=== PATIENT | male | born 1955 | race Caucasian/White ===

== ENCOUNTER 2017-03-01 14:33 | Emergency (ER) | payer OTHER ==
--- NOTE | 2017-03-01 15:43 | EDM.PDOC ---
ED HPI GENERAL MEDICAL PROBLEM - General Chief Complaint: Back Pain or Injury Stated Complaint: UPPER BACK PAIN Time Seen by Provider: 03/01/17 14:37 Source of Information: Reports: Patient History Limitations: Reports: No Limitations - History of Present Illness INITIAL COMMENTS - FREE TEXT/NARRATIVE: History of present illness: []Patient had a muscle spasm his right upper back a few weeks ago this morning he noted it on the left side of his back. It hurts when he twists and moves and when he takes a deep breath. He denies any fevers, chills, cough or chest pain. Review of systems: As per history of present illness and below otherwise all systems reviewed and negative. Past medical history: As per history of present illness and as reviewed below otherwise noncontributory. Surgical history: As per history of present illness and as reviewed below otherwise noncontributory. Social history: No reported history of drug or alcohol abuse. Family history: As per history of present illness and as reviewed below otherwise noncontributory. Physical exam: General: Well developed, well nourished in NAD HEENT: Atraumatic, normocephalic, pupils reactive, negative for conjunctival pallor or scleral icterus, mucous membranes moist, throat clear, neck supple, nontender, trachea midline. Lungs: Clear to auscultation, breath sounds equal bilaterally, chest nontender. Posterior upper chest over the left trapezius muscle area is tender to palpation that is reproducible with the exact same pain he is feeling. Heart: S1S2, regular, negative for clicks, rubs, or JVD. Abdomen: Soft, nondistended, nontender. Negative for masses or hepatosplenomegaly. Negative for costovertebral tenderness. Pelvis: Stable nontender. Genitourinary: Deferred. Rectal: Deferred. Extremities: Atraumatic, negative for cords or calf pain. Neurovascular unremarkable. Neuro: Awake, alert, oriented. Cranial nerves II through XII unremarkable. Cerebellum unremarkable. Motor and sensory unremarkable throughout. Exam nonfocal. Diagnostics: [] Therapeutics: [] Impression: []Musculoskeletal pain back spasm Plan: []Flexeril for spasm, ice, heat, ibuprofen for pain. Definitive disposition and diagnosis as appropriate pending reevaluation and review of above. Left Back/Shoulder Pain Score (Numeric/FACES): 8 - Related Data Allergies Allergy/AdvReac Type Severity Reaction Status Date / Time No Known Allergies Allergy Verified 03/01/17 15:10 Home Meds: Home Meds Antidepressant 0 mg PO DAILY 03/01/17 [History] Cholesterol Medication 0 mg PO DAILY 03/01/17 [History] Esomeprazole Magnesium [Nexium 24Hr] 20 mg PO 03/01/17 [History] Past Medical History Cardiovascular History: Reports: High Cholesterol Gastrointestinal History: Reports: GERD Social & Family History - Family History Family Medical History: Noncontributory - Tobacco Use Smoking Status *Q: Never Smoker - Recreational Drug Use Recreational Drug Use: No ED ROS GENERAL - Review of Systems Review Of Systems: See Below (See history of present illness) ED EXAM, GENERAL - Physical Exam Exam: See Below (See history of present illness) Course - Vital Signs Last Recorded V/S: Last Vital Signs Temp 97.8 F 03/01/17 15:11 Pulse 72 03/01/17 15:11 Resp 18 03/01/17 15:11 BP 143/83 H 03/01/17 15:11 Pulse Ox 94 L 03/01/17 15:11 Departure - Departure Time of Disposition: 15:42 Disposition: Home, Self-Care 01 Condition: Good Clinical Impression: Spasm of muscle, back - Discharge Information Referrals: PCP,None [Primary Care Provider] - Additional Instructions: The following information is given to patients seen in the emergency department who are being discharged to home. This information is to outline your options for follow-up care. We provide all patients seen in our emergency department with a follow-up referral. The need for follow-up, as well as the timing and circumstances, are variable depending upon the specifics of your emergency department visit. If you don't have a primary care physician on staff, we will provide you with a referral. We always advise you to contact your personal physician following an emergency department visit to inform them of the circumstance of the visit and for follow-up with them and/or the need for any referrals to a consulting specialist. The emergency department will also refer you to a specialist when appropriate. This referral assures that you have the opportunity for follow-up care with a specialist. All of these measure are taken in an effort to provide you with optimal care, which includes your follow-up. Under all circumstances we always encourage you to contact your private physician who remains a resource for coordinating your care. When calling for follow-up care, please make the office aware that this follow-up is from your recent emergency room visit. If for any reason you are refused follow-up, please contact the [facility] at and asked to speak to the emergency department charge nurse. Ibuprofen, Flexeril, heat or ice for spasm follow-up with PMD return to ER if symptoms worsen or change. [facility] [address] [place] [id number]
== END 2017-03-01 16:00 | disposition home or self-care (01) ==
LOC: MW.ED 14:33
DX: M62.830 Muscle spasm of back (principal); E78.00 Pure hypercholesterolemia, unspecified; Z79.899 Other long term (current) drug therapy
CPT/HCPCS: 99283

== ENCOUNTER 2017-07-11 15:03 | Emergency (ER) | payer SELFPAY ==
[2017-07-11] MEDS ORDERED: Diphtheria,Pertussis(Acell),Tetanus Vaccine 0.5 ML Syringe IM ONE (15:18)
[2017-07-11] MEDS ORDERED: Lidocaine 1% 20 ML MDV INJECT ONE (15:20)
--- NOTE | 2017-07-11 15:21 | EDM.PDOC ---
ED HPI GENERAL MEDICAL PROBLEM - General Chief Complaint: General Stated Complaint: NAIL STUCK IN FINGER Time Seen by Provider: 07/11/17 15:20 Source of Information: Reports: Patient History Limitations: Reports: No Limitations - History of Present Illness INITIAL COMMENTS - FREE TEXT/NARRATIVE: HISTORY AND PHYSICAL: []61-year-old male presenting with injury to his right thumb History of Present Illness: []While at work patient accidentally putting nail through the tip of his right thumb Review of Systems: As per history of present illness and below otherwise all systems reviewed and negative. Past medical history: As per history of present illness and as reviewed below otherwise noncontributory. Surgical history: As per history of present illness and as reviewed below otherwise noncontributory. Social history: No reported history of drug or alcohol abuse. Family history: As per history of present illness and as reviewed below otherwise noncontributory. Physical exam: Patient does not remember when his last tetanus vaccine was given he's alert and oriented speaking well in full sentences without any shortness of breath HEENT: Atraumatic, normocehpalic, pupils reactive, negative for conjunctival pallor or scleral icterus, mucous membranes moist, throat clear, neck supple, nontender, trachea midline. Lungs: Clear to auscultation, breath sounds equal bilaterally, chest non tender. Heart: S1S2, regular, negative for clicks, rubs, or JVD. Abdomen: Soft, nondistended, nontender. Negative for masses or hepatossplenmegaly. Negative for costovertebral tenderness. Pelvis: Stable nontender. Genitourinary: Deferred. Rectal: Deferred Extremities: 1020 nail sticking through his right thumb. Glove is intact. negative for cords or calf pain. Neurovascular unremarkable. Neuro: Awake, alert, oriented. Cranial nerves II through XII unremarkable. Cerebellum unremarkable. Motor and sensory unremarkable throughout. Exam nonfocal. Block was initiated to the right thumb using 1% lidocaine. Patient states thumb is feeling like it is "asleep" With assist thumb was held in nail was removed by pulling straight out. Minimal bleeding was noted Discussed with there are no fractures present Diagnostics: []X-ray right thumb Therapeutics: [] Tetanus vaccine Impression: []Puncture wound Plan: []Discharged home Definitive disposition and diagnosis as appropriate pending reevaluation and review of above. Onset: Today, Sudden Right Hand Pain Score (Numeric/FACES): 6 - Related Data Allergies Allergy/AdvReac Type Severity Reaction Status Date / Time No Known Allergies Allergy Verified 03/01/17 15:10 Home Meds: Home Meds Antidepressant 0 mg PO DAILY 03/01/17 [History] Cholesterol Medication 0 mg PO DAILY 03/01/17 [History] Esomeprazole Magnesium [Nexium 24Hr] 20 mg PO 03/01/17 [History] Amoxicillin/Potassium Clav [Augmentin 875-125 Tablet] 1 each PO BID #14 tablet 07/11/17 [Rx] Past Medical History Cardiovascular History: Reports: High Cholesterol Gastrointestinal History: Reports: GERD Social & Family History - Family History Family Medical History: Noncontributory ED ROS GENERAL - Review of Systems Review Of Systems: ROS reveals no pertinent complaints other than HPI. ED EXAM, GENERAL - Physical Exam Exam: See Below (see dictation) Course - Vital Signs Last Recorded V/S: Last Vital Signs Temp 37.2 C 07/11/17 15:21 Pulse 71 07/11/17 15:21 Resp 18 07/11/17 15:21 BP 146/80 H 07/11/17 15:21 Pulse Ox 98 07/11/17 15:21 - Orders/Labs/Meds Orders: Active Orders 24 hr Category Date Time Status Vaccines to be Administered [RC] PER UNIT ROUTINE Care 07/11/17 15:18 Active Meds: Medications Discontinued Medications Generic Name Dose Route Start Last Admin Trade Name Freq PRN Reason Stop Dose Admin Diphtheria/Tetanus/Acell Pertussis 0.5 ml 07/11/17 15:18 07/11/17 15:34 Adacel IM 07/11/17 15:19 0.5 ml .ONCE ONE Administration Lidocaine HCl 20 ml 07/11/17 15:20 07/11/17 15:34 Xylocaine 1% INJECT 07/11/17 15:21 20 ml ONETIME ONE Administration Departure - Departure Time of Disposition: 16:15 Disposition: Home, Self-Care 01 Condition: Good Clinical Impression: Wound, open, puncture - Discharge Information Prescriptions: Amoxicillin/Potassium Clav [Augmentin 875-125 Tablet] 1 each PO BID #14 tablet Referrals: PCP,None [Primary Care Provider] - Forms: ED Department Discharge Additional Instructions: The following information is given to patients seen in the emergency department who are being discharged to home. This information is to outline your options for follow-up care. We provide all patients seen in our emergency department with a follow-up referral. The need for follow-up, as well as the timing and circumstances, are variable depending upon the specifics of your emergency department visit. If you don't have a primary care physician on staff, we will provide you with a referral. We always advise you to contact your personal physician following an emergency department visit to inform them of the circumstance of the visit and for follow-up with them and/or the need for any referrals to a consulting specialist. The emergency department will also refer you to a specialist when appropriate. This referral assures that you have the opportunity for followup care with a specialist. All of these measure are taken in an effort to provide you with optimal care, which includes your followup. Under all circumstances we always encourage you to contact your private physician who remains a resource for coordinating your care. When calling for followup care, please make the office aware that this follow-up is from your recent emergency room visit. If for any reason you are refused follow-up, please contact the [facility] emergency department at and asked to speak to the emergency department charge nurse. You have a puncture wound no fractures were noted on x-ray Prescription has been electronically sent to [facility] May use Epson salt water soaks ice daily Follow up with your primary care in 1 week - My Orders Last 24 Hours: My Active Orders 07/11/17 15:18 Vaccines to be Administered [RC] PER UNIT ROUTINE - Assessment/Plan Last 24 Hours: My Active Orders 07/11/17 15:18 Vaccines to be Administered [RC] PER UNIT ROUTINE
--- NOTE | 2017-07-11 15:52 | CR ---
EXAMINATION: Right thumb HISTORY: nail in thumb COMPARISON: None TECHNIQUE: 3 views FINDINGS/IMPRESSION: There is a nail projecting through the distal aspect of the first phalanx, just distal to the tuft without evidence of osseous involvement or an underlying fracture. Moderate osteoa rthritic changes noted within the interphalangeal joint and less so at the first MTP joint. Bone mine ralization is otherwise normal.
== END 2017-07-11 16:26 | disposition home or self-care (01) ==
LOC: MW.ED 15:03
DX: S61.041A Puncture wound with foreign body of right thumb without damage to nail, initial encounter (principal); W45.0XXA Nail entering through skin, initial encounter
CPT/HCPCS: 73140-26-F5; 73140-F5; 90471; 90715; 99283-25